=== PATIENT | male | born 1970 | race Caucasian/White ===

== ENCOUNTER 2021-05-26 05:39 | Emergency (ER) | payer BC, SELFPAY ==
[2021-05-26 05:53] VITALS: BP 200/115; PULSE 108; RESP 18; TEMP 37; O2SAT 95; BMI 43.4
--- NOTE | 2021-05-26 06:23 | W.ED.FALL ---
HPI - Fall General: Chief Complaint: Fall Stated Complaint: fell on ice and injured R hip and side Time Seen by Provider: 05/26/21 06:01 Source: patient Mode of arrival: ambulatory Limitations: no limitations History of Present Illness: 50-year-old male presents emergency room with complaints of low back pain with pain radiating down his right leg. He has had hip pain and pain radiating to the posterior thigh since that time. This initially happened 6 days ago. He has been ambulatory since and has not had any urinary retention or bowel incontinence he has numbness tingling pain shooting down the posterior aspect of the right leg. He has remote history of an injury in his teenage years to his back no surgery wrist imaging or recurrent injury since then. He is not really take anything for this other than [id number] medications. Supine rest makes it better activity walking makes it worse. No urinary retention or bowel incontinence MD complaint: fall Onset (ago): day(s) (6) Fall from: standing Fall witnessed: no Place fall occurred: home Loss of consciousness: None Prolonged down time: no Symptoms prior to fall: none Context: tripped/slipped Location of injury: back Severity: moderate Associated symptoms-after fall: Reports difficulty walking; Denies abdominal pain, chest pain, confusion, headache(s), hematuria, lightheadedness, neck pain, numbness, short of breath, vertigo or weakness Review of Systems Const: Denies: fever(s), chills, body aches, change in appetite, fatigue or malaise ENMT: Denies: throat pain, ear or mastoid pain, nasal discharge or nasal congestion Card: Denies: chest pain or lightheadedness Resp: Denies: dyspnea, productive cough or non-productive cough GI: Denies: abdominal pain : Denies: hematuria Musc: Denies: neck pain Skin/Breast: Denies: rash or pruritus Neuro: Reports: difficulty walking; Denies: headache(s), vertigo or confusion PFS ED PFSH: Medical History (Updated 05/31/21 @ 06:42 by Arturo Murray DO) No significant past medical history Surgical History (Updated 05/31/21 @ 06:42 by Arturo Murray DO) No significant past surgical history Physical Exam Const: GENERAL APPEARANCE: cooperative and comfortable ORIENTATION/CONSCIOUSNESS: Yes awake, Yes oriented to person, Yes oriented to place and Yes oriented to time HENMT: COMMON NORMALS: normocephalic, atraumatic and hearing grossly normal bilaterally HEAD & SCALP: normocephalic and atraumatic Resp: COMMON NORMALS: normal respiratory effort, No retractions, No use of accessory muscles and clear to auscultation bilaterally AUSCULTATION: clear to auscultation bilaterally Cardio: COMMON NORMALS: regular rate, regular rhythm and No murmurs present (Cardio) RATE: regular rate RHYTHM: regular rhythm Extremity: COMMON NORMALS: normal to inspection, capillary refill normal, no clubbing, cyanosis or edema, no calf tenderness and no pedal edema OTHER: Straight leg raising negative for neurovascular intact sensation normal Neuro: SENSORIUM/ORIENTATION: Yes oriented to person, Yes oriented to place and Yes oriented to time Skin: COMMON NORMALS: no rashes or lesions noted GENERAL SKIN EXAM: no rashes or lesions noted Course Vital Signs: Vital signs: Vital Signs Temperature 98.6 F 05/26/21 05:53 Pulse Rate 108 H 05/26/21 05:53 Respiratory Rate 18 05/26/21 05:53 Blood Pressure 200/115 05/26/21 05:53 Pulse Oximetry 95 05/26/21 05:53 MDM - Fall Medical Decision Making Discharge home with steroid burst and taper anti-inflammatories and muscle relaxers follow-up with primary care if persists or worsens may need advanced imaging. Also encourage patient to follow-up on his blood pressure Discharge Plan Discharge Patient Disposition: Home Clinical Impression: Lumbar back pain with radiculopathy affecting right lower extremity Condition: Stable Prescriptions: New diclofenac sodium 75 mg tablet,delayed release (DR/EC) 75 mg PO Q12H PRN (Reason: pain) Qty: 20 0RF tizanidine 4 mg capsule 4 mg PO Q6H PRN (Reason: muscle spasticity) Qty: 20 0RF Rx Instructions: do not exceed 3 doses per 24 hrs prednisone 20 mg tablet 20 mg PO BID 7 Days Qty: 15 0RF Rx Instructions: 1 p.o. 3 times daily x3 days, 1 p.o. twice daily x2 days, 1 p.o. daily x2 days Discharge Orders: Discharge ED (Routine); Ordered 05/26/21 Ordered By: Arturo Murray Discharge Diet: Usual diet Discharge Activity: Limit activity as instructed Patient Instructions: Opioid Safety Activity Restrictions/Additional Instructions: No bending or stooping. Do not work below waist level do not work above shoulder level. No lifting greater than 10 pounds. Follow-up with your primary care doctor within the next week. If this persist you may need an outpatient MRI of your back. Coding Level of Care Code ED [employer] for [employer] Exam Detailed
[2021-05-26] MEDS: dexamethasone 10 mg/mL INJ IM (06:56)
[2021-05-26] MEDS: ketorolac 60 mg/2 mL INJ IM (06:56)
[2021-05-26] MEDS: orphenadrine 30 mg/mL Inj 2 mL 60 MG IM (06:56)
== END 2021-05-26 07:15 | disposition home or self-care (01) ==
PROVIDERS: Emergency Provider Family Medicine
DX: M54.16 Radiculopathy, lumbar region (principal)
CPT/HCPCS: 96372; 99283; J1100; J1885; J2360

== ENCOUNTER 2021-08-02 06:00 | Outpatient (RCR) | payer BC, SELFPAY | END 2021-08-12 23:59 | disposition home or self-care (01) | LOC: GPT 06:00 | PROVIDERS: PCP Nurse Practitioner Family; Referring Provider Nurse Practitioner Family; Visit Provider Nurse Practitioner Family | DX: M54.41 Lumbago with sciatica, right side (principal); M54.17 Radiculopathy, lumbosacral region | CPT/HCPCS: 97110; 97162 ==

== ENCOUNTER 2021-08-13 | Outpatient (RCR) | payer BC, SELFPAY | END 2021-09-12 23:59 | disposition home or self-care (01) | LOC: GPT | PROVIDERS: PCP Nurse Practitioner Family; Referring Provider Nurse Practitioner Family; Visit Provider Nurse Practitioner Family | DX: M54.41 Lumbago with sciatica, right side (principal); M54.17 Radiculopathy, lumbosacral region | CPT/HCPCS: 97110; 97140 ==

== ENCOUNTER 2023-10-30 14:31 | Outpatient (CLI) | payer BC, SELFPAY ==
--- NOTE | 2023-10-30 14:42 | MR_ITS ---
WS: [id number] MRI LUMBAR SPINE NONCONTRAST HISTORY: CHRONIC LOW BACK PAIN COMPARISON: None available. TECHNIQUE: Sagittal and axial multisequence imaging is submitted. Study is compromised by body habitus. Posterior lumbar alignment is normal. Mild disc space narrowing and desiccation, most significant at L4-5. Reactive marrow edema in the adjacent L4 and L5 endplates. No fractures. Conus terminates normally at L1-2 disc level. L1-L2: Mild annular disc bulging with facet and ligamentum flavum hypertrophy. Very mild foraminal na rrowing. L2-L3: Mild annular disc bulging with facet and ligamentum flavum hypertrophy. Mild central canal gali nosis with narrowing of the subarticular recess and foramina. L3-L4: Mild diffuse annular disc bulging with ligamentum flavum and facet arthritis. Mild central gali nosis. Small caliber thecal sac. Mild to moderate subarticular recess and foraminal stenosis with enc roachment upon the L3 and L4 nerve roots. L4-L5: Mild annular disc bulge with a moderate size central disc protrusion disc protrusion encroache s into the subarticular recesses, RIGHT greater than LEFT. There is significant mass effect upon the central canal. Moderate to severe central with bilateral subarticular recess and foraminal stenosis. There is significant disc contact on the traversing L5 nerve roots, RIGHT greater than LEFT. Slightly greater LEFT foraminal narrowing by disc and osteophyte disease. L5-S1: Mild disc bulging contacting the S1 nerve roots with mild to moderate bilateral foraminal sten osis. MR/MR lumbar spine wo con* [id number] IMPRESSION: 1. Study is compromised by body habitus. 2. L4-5: Moderate size central disc protrusion contacts the traversing L5 nerv e roots, RIGHT greater than LEFT. Facet disease and disc disease contribute to moderate to severe central with bilateral subarticular recess and foraminal gali nosis. Slightly greater LEFT foraminal stenosis. 3. L3-4: Mild central stenosis with mild to moderate subarticular recess and f oraminal stenosis. There is encroachment upon the L3 and L4 nerve roots bilater ally. 4. L2-3: Mild central stenosis with mild subarticular recess and foraminal mary rowing. 5. Mild foraminal narrowing at L1-2 with mild to moderate bilateral foraminal stenosis at L5-S1. 6. Advanced degenerative disc disease and marrow edema at L4-5.
== END 2023-10-30 14:32 | disposition home or self-care (01) ==
LOC: RAD 14:32
PROVIDERS: Visit Provider Family Medicine
DX: M51.24 Other intervertebral disc displacement, thoracic region (principal); M99.63 Osseous and subluxation stenosis of intervertebral foramina of lumbar region; M51.36 Other intervertebral disc degeneration, lumbar region; M25.78 Osteophyte, vertebrae
CPT/HCPCS: 72148

== ENCOUNTER 2023-11-11 10:06 | Outpatient (CLI) | payer BC, SELFPAY ==
--- NOTE | 2023-11-11 10:18 | USCV_ITS ---
Isaiah Styles Age: 52 Gender: M : 1970 Exam Date: 11/11/2023 10:26 Ordering Phys: Ulysses Whitlock MD Technologist: CT [place] [facility] [place] Indication: MURMUR BP: 129 / 81 HR: 85 Rhythm: Sinus Technical Quality: Adequate MEASUREMENTS (Male / Female) Normal Values 2D ECHO LVOT Diameter 2.0 cm LV Ejection Fraction MOD 4C 63.4 % LV Ejection Fraction MOD 2C 70.1 % LV Ejection Fraction 2C AL 71.0 % LA Diameter 4.5 cm RA Systolic Volume 4C AL 65.3 ml RA Systolic Volume 4C MOD 65.2 ml LA Sys Volume AL 55.7 cm cubed LA Sys Volume Index AL 17.4 cm cubed/m squared Aorta at Sinotubular Diameter 2.6 cm IVC Diameter 2.5 cm M-MODE LA Ao Ratio MM 2.0 AV Cusp Separation MM 2.0 cm DOPPLER AV Peak Velocity 155.0 cm/s LVOT Peak Velocity 135.0 cm/s AV Area Cont Eq vti 2.5 cm squared AV Area Cont Eq pk 2.8 cm squared MV Peak Velocity 104.0 cm/s MV Area PHT 4.1 cm squared Mitral E to A Ratio 1.2 TV Peak E Velocity 73.0 cm/s Right Atrial Pressure 3.0 mmHg PV Peak Velocity 136.5 cm/s FINDINGS Left Ventricle Normal LV size and ejection fraction of 63%. No gross wall motion abnormalities. Right Ventricle Normal RV size and ejection fraction. Marker horizontal echodensities at near to the RV apex suggesting moderator band Right Atrium The right atrium is normal in size. Left Atrium The left atrium is normal in size. Mitral Valve No gross abnormalities noted Aortic Valve No gross abnormalities noted Tricuspid Valve No gross abnormalities noted Pulmonic Valve No gross abnormalities noted Pericardium Normal pericardium without effusion. Aorta Normal ascending aorta dimension. IVC Normal inferior vena cava. CONCLUSIONS Normal LV size and ejection fraction of 63%. No gross wall motion abnormalities. Normal cardiac chamber sizes. No gross valvular abnormalities noted There is no pericardial effusion. There are no intracardiac masses. No similar previous studies are available for comparison Dr Yovani Huang MD [facility] (Electronically Signed) Final Date: 12 November 2023 23:36 S
== END 2023-11-11 10:07 | disposition home or self-care (01) ==
PROVIDERS: Visit Provider Family Medicine
DX: R01.1 Cardiac murmur, unspecified (principal)
CPT/HCPCS: 93306

== ENCOUNTER 2023-12-15 06:00 | Outpatient (RCR) | payer BC, SELFPAY | END 2024-01-13 23:59 | disposition home or self-care (01) | LOC: GPT 06:00 | PROVIDERS: Visit Provider Surgery | DX: M54.51 Vertebrogenic low back pain (principal) | CPT/HCPCS: 97110; 97112; 97140; 97161 ==

== ENCOUNTER 2024-01-14 06:00 | Outpatient (RCR) | payer BC, SELFPAY | END 2024-02-13 23:59 | disposition home or self-care (01) | LOC: GPT 06:00 | PROVIDERS: Visit Provider Surgery | DX: M54.51 Vertebrogenic low back pain (principal) | CPT/HCPCS: 97110; 97112; 97140; 97530 ==

== ENCOUNTER 2024-02-14 06:00 | Outpatient (RCR) | payer BC, SELFPAY | END 2024-03-14 23:59 | disposition home or self-care (01) | LOC: GPT 06:00 | PROVIDERS: Visit Provider Surgery | DX: M54.51 Vertebrogenic low back pain (principal) | CPT/HCPCS: 97110; 97164; 97530 ==

== ENCOUNTER 2024-03-15 06:00 | Outpatient (RCR) | payer BC, SELFPAY | END 2024-03-25 23:59 | disposition home or self-care (01) | LOC: GPT 06:00 | PROVIDERS: Visit Provider Surgery | DX: M54.51 Vertebrogenic low back pain (principal) | CPT/HCPCS: 97110; 97535 ==